=== PATIENT | male | born 1995 | race Hispanic/Latino ===

== ENCOUNTER 2018-07-10 11:15 | Emergency (ER) | payer MEDICAID, OTHER, SELFPAY ==
[~2018-07-10] VITALS: Ht 180.3 cm; Wt 79.5 kg
[~2018-07-10 11:15] MED LIST: TRAZ-160 PO
[2018-07-10 11:16] VITALS: BP 158/81
[2018-07-10] MEDS ORDERED: HYDR1CAP25 (11:27)
[2018-07-10] MEDS ORDERED: RISP0.5T3 PO (11:27)
[2018-07-10] MEDS ORDERED: METH36TA (11:27)
[2018-07-10] MEDS ORDERED: BACT800T5 PO (12:06)
== END 2018-07-10 12:13 | disposition home or self-care (01) ==
LOC: M ED 11:15
DX: N49.2 Inflammatory disorders of scrotum (principal)